=== PATIENT | female | born 2000 | race American Indian/Alaskan Native ===

== ENCOUNTER 2022-01-01 13:50 | Emergency (ER) | payer OTHER, BC ==
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
[2022-01-01] MEDS ORDERED: KETOROLAC 30 MG/1 ML INJ IM ONE (15:03)
[2022-01-01] MEDS ORDERED: ACETAMINOPHEN 325 MG TAB PO ONE (15:03)
[2022-01-01 16:53] VITALS: BP 121/67
== END 2022-01-01 16:30 | disposition home or self-care (01) ==
LOC: ED 13:50
DX: M79.10 Myalgia, unspecified site (principal); V49.9XXA Car occupant (driver) (passenger) injured in unspecified traffic accident, initial encounter; Y93.89 Activity, other specified; Y92.89 Other specified places as the place of occurrence of the external cause; Y99.8 Other external cause status
CPT/HCPCS: 96372; 99283; J1885